=== PATIENT | female | born 1975 | race Caucasian/White ===

== ENCOUNTER 2024-10-24 06:31 | Day surgery (SDC) | payer BC ==
[2024-10-24] MEDS ORDERED: Lactated Ringers 1,000 ML IV ONE (07:19)
[2024-10-24] MEDS: Lactated Ringers 1,000 ML IV SCH (07:34)
[2024-10-24] MEDS ORDERED: propofoL IV ONE ×2 (08:01→08:08)
[2024-10-24 08:45] VITALS: RESP 16
[2024-10-24 08:55] VITALS: BP 131/89; PULSE 55; TEMP 98.6; O2SAT 99
--- NOTE | 2024-10-25 08:30 | OP ---
SURGERY DATE/TIME: 10/24/2024 [id number] PREOPERATIVE DIAGNOSIS: Screening exam. POSTOPERATIVE DIAGNOSIS: Polyps in the sigmoid and rectosigmoid colon. PROCEDURE: Colonoscopy with combination hot and cold snare polypectomy. SURGEON: Melvin Pruitt MD ANESTHESIA: Medication given by the anesthesia department. INDICATIONS: The patient is a 49-year-old white female presenting now for screening colonoscopy. She was apprised of the risks of procedure, including risk of perforation, phlebitis, untoward reaction to medication, bleeding and missed lesions. The patient verbalized her understanding and desired to have procedure performed. DESCRIPTION OF PROCEDURE AND FINDINGS: Patient was given medication by the anesthesia department. She had continuous pulse oximetry, ECG monitoring, and intermittent blood pressure monitoring during the examination. She was placed in the left lateral decubitus position. A digital rectal examination was performed and revealed external hemorrhoids, normal anal sphincter tone and no masses otherwise. The flexible Olympus videocolonoscope was used to intubate the rectum. A view of the colon was developed sequentially to the cecum. Upon insertion and withdrawal, we noted polyps in the sigmoid and rectosigmoid area. These were removed using combination of cold and hot snare polypectomies. The polyp fragments were retrieved for pathologic evaluation. No other mucosal lesions being encountered, the scope was removed from the patient who tolerated the procedure well and sent back to the outpatient recovery room in good condition. The prep was noted to be good.
== END 2024-10-24 09:05 | disposition home or self-care (01) ==
LOC: SDC 06:31
PROVIDERS: ATTEND Family Medicine
DX: Z12.11 Encounter for screening for malignant neoplasm of colon (principal); K64.4 Residual hemorrhoidal skin tags; D12.7 Benign neoplasm of rectosigmoid junction; D12.5 Benign neoplasm of sigmoid colon
CPT/HCPCS: J2704